=== PATIENT | female | born 1950 | race Caucasian/White ===

== ENCOUNTER 2024-09-16 05:51 | Inpatient (IN) | payer MEDICARE ==
[2024-09-16] MEDS ORDERED: Magnesium 2 GM/50 ML BAG (IN WATER) ONE (06:06)
[2024-09-16] MEDS ORDERED: Dexamethasone 10 MG/ML VIAL ONE (06:07)
[2024-09-16 06:19] LABS: #Basophils 0.11 10x3/uL (0.0-0.2); %Basophils 1.1 % (0.0-1.0); %Eosinophils 5.6 % (0.0-10.0); %Lymphocytes 9.5 % (21.0-51.0); %Neutrophils 72.5 % (42.0-75.0); Hematocrit 42.5 % (36.0-47.0); Hemoglobin 14.5 g/dL (12.0-16.0); Mean Corpuscular HGB CONC 34.1 g/dL (32.0-36.0); Mean Corpuscular Hemoglobin 32.6 pg (27.0-31.0); Mean Corpuscular Volume 95.5 fL (78.0-98.0); Mean Platelet Volume 10.4 fL (7.4-10.4); Platelet Count 427 10x3/uL (130-400); RBC Distribution Width 19.5 % (11.5-14.5); Red Blood Cell (RBC) Count 4.45 mill/uL (4.20-5.40)
[2024-09-16 06:35] LABS: ALT (SGPT) 9 U/L (8-55); AST (SGOT) 20 U/L (5-34); Albumin 4.3 g/dL (3.4-4.8); Alkaline Phosphatase 55 U/L (40-110); Anion Gap 20 mmol/L (10-20); BUN (Urea Nitrogen) 23 mg/dL (9.8-20.1); Bilirubin, Total 4.4 mg/dL (0.2-1.2); Calc. Creatinine Clearance 0 mL/min (70-130); Calcium 9.9 mg/dL (7.8-10.44); Carbon Dioxide 17 mmol/L (23-31); Chloride 104 mmol/L (98-107); Estimated GFR 46; Globulin 3.2 g/dL (2.4-3.5); Glucose 108 mg/dL (83-110); Potassium 4.6 mmol/L (3.5-5.1); Protein, Total 7.5 g/dL (5.8-8.1); Sodium 136 mmol/L (136-145)
[2024-09-16 06:38] LABS: Troponin I 0.186 ng/mL (< 0.028)
[2024-09-16] MEDS ORDERED: Ipratropium/Albuterol 3 ML NEB ONE ×2 (07:42→07:49)
[2024-09-16] MEDS ORDERED: Albuterol 2.5 MG (3 mL) NEB ONE (07:49)
[2024-09-16] MEDS ORDERED: Furosemide 20 MG (2 mL) VIAL ONE (08:06)
[2024-09-16 09:10] LABS: Lactic Acid 1.66 mmol/L (0.5-2.2)
[2024-09-16 10:37] LABS: Troponin I 0.169 ng/mL (< 0.028)
[2024-09-16 10:52] VITALS: BMI 46.0
[2024-09-16] MEDS: Apixaban 5 MG TAB PO SCH (11:04)
[2024-09-16] MEDS: Famotidine 20 MG TAB PO SCH (11:04)
[2024-09-16] MEDS: Furosemide 20 MG (2 mL) VIAL SLOW IVP SCH (11:04)
[2024-09-16] MEDS: Sacubitril 24MG/Valsartan 26 MG TAB PO SCH (11:04)
[2024-09-16] MEDS: Carvedilol 3.125 MG TAB PO SCH (11:04)
[2024-09-16] MEDS: Midodrine HCl 5 MG TAB PO SCH (11:04)
[2024-09-16 12:40] LABS: Troponin I 0.174 ng/mL (< 0.028)
[2024-09-16] MEDS ORDERED: Iopamidol-370 76% 500 ML MDV (1 ML CHARGE) ONE (13:35)
[2024-09-16] MEDS: Furosemide 40 MG (4 mL) VIAL SLOW IVP SCH (14:16)
[2024-09-17 05:03] LABS: #Basophils 0.04 10x3/uL (0.0-0.2); #Eosinophils Less than 0.03 10x3/uL (0.0-0.7); %Basophils 0.3 % (0.0-1.0); %Lymphocytes 4.7 % (21.0-51.0); %Monocytes 9.6 % (0.0-10.0); %Neutrophils 84.9 % (42.0-75.0); Hematocrit 37.8 % (36.0-47.0); Mean Corpuscular HGB CONC 34.4 g/dL (32.0-36.0); Mean Corpuscular Hemoglobin 31.6 pg (27.0-31.0); Mean Corpuscular Volume 91.7 fL (78.0-98.0); Mean Platelet Volume 10.6 fL (7.4-10.4); Platelet Count 403 10x3/uL (130-400); RBC Distribution Width 19.3 % (11.5-14.5); Red Blood Cell (RBC) Count 4.12 mill/uL (4.20-5.40)
[2024-09-17 05:26] LABS: Anion Gap 18 mmol/L (10-20); BUN (Urea Nitrogen) 33 mg/dL (9.8-20.1); Calc. Creatinine Clearance 60 mL/min (70-130); Calcium 9.3 mg/dL (7.8-10.44); Carbon Dioxide 20 mmol/L (23-31); Chloride 102 mmol/L (98-107); Estimated GFR 35; Glucose 135 mg/dL (83-110); Magnesium 2.2 mg/dL (1.6-2.6); Potassium 4.3 mmol/L (3.5-5.1); Sodium 136 mmol/L (136-145)
[2024-09-17] MEDS: Spironolactone 25 MG TAB PO SCH (08:48)
[2024-09-17] MEDS: Furosemide 100 MG (10 mL) VIAL SLOW IVP SCH ×2 (12:33→16:30)
[2024-09-17] MEDS ORDERED: Ipratropium/Albuterol 3 ML NEB NEB PRN (16:52)
[2024-09-17] MEDS: Pantoprazole DR 40 MG TAB PO SCH (18:27)
[2024-09-18] MEDS ORDERED: Sterile Water 10 ML VIAL FS PRN (04:30)
[2024-09-18] MEDS ORDERED: Furosemide 100 MG (10 mL) VIAL SLOW IVP SCH (06:00)
[2024-09-18 06:16] LABS: #Basophils 0.12 10x3/uL (0.0-0.2); %Basophils 0.8 % (0.0-1.0); %Eosinophils 2.7 % (0.0-10.0); %Lymphocytes 7.4 % (21.0-51.0); %Monocytes 13.5 % (0.0-10.0); %Neutrophils 75.1 % (42.0-75.0); Hematocrit 41.1 % (36.0-47.0); Hemoglobin 14.1 g/dL (12.0-16.0); Mean Corpuscular HGB CONC 34.3 g/dL (32.0-36.0); Mean Corpuscular Hemoglobin 31.7 pg (27.0-31.0); Mean Corpuscular Volume 92.4 fL (78.0-98.0); Platelet Count 412 10x3/uL (130-400); RBC Distribution Width 19.1 % (11.5-14.5); Red Blood Cell (RBC) Count 4.45 mill/uL (4.20-5.40)
[2024-09-18] MEDS: Ziprasidone 20 MG VIAL IM SCH (06:21)
[2024-09-18 06:35] LABS: Bacteria/HPF 2+ HPF (None Seen); WBC/HPF 21-50 HPF (0-3)
[2024-09-18 06:35] LABS: Anion Gap 19 mmol/L (10-20); BUN (Urea Nitrogen) 42 mg/dL (9.8-20.1); Calc. Creatinine Clearance 47 mL/min (70-130); Calcium 9.9 mg/dL (7.8-10.44); Carbon Dioxide 17 mmol/L (23-31); Chloride 104 mmol/L (98-107); Estimated GFR 26; Glucose 102 mg/dL (83-110); Potassium 4.6 mmol/L (3.5-5.1); Sodium 135 mmol/L (136-145)
[2024-09-18 06:44] LABS: Bilirubin Negative (Negative); Blood, Urine 2+ (Negative); Clarity Turbid (Clear); Glucose, Urine (Dipstick) Normal (Negative); Ketone, Urine Negative (Negative); Leukocyte 500 Leu/uL (Negative); Nitrite Negative (Negative); Protein, Urine (Dipstick) 20 mg/dL (Neg-Trace); Specific Gravity, Urine 1.025 (1.002-1.036)
[2024-09-18] MEDS ORDERED: Dapagliflozin Propanediol 10 MG TAB PO SCH (09:00)
[2024-09-18] MEDS: Pantoprazole DR 40 MG TAB PO SCH (09:22)
[2024-09-18 10:08] LABS: Actual Bicarbonate (HCO3a) 20.4 mEq/L (22-28); Base Excess (BEa) -3.1 mEq/L (-2.0 to +3.0); CO2 Tension 32.4 mmHg (35.0-45.0); Calcium, Ionized (arterial) 1.16 mmol/L (1.12-1.30); Carboxyhemoglobin (COHb) 1.2 gm% (0.0-3.0); Hematocrit-ABG 42 % (36.0-47.0); Hemoglobin (Hb) 14.2 g/dL (12.0-16.0); O2 Tension (PaO2), arterial 77.7 mmHg (> 70.0); Potassium - ABG Lab 4.45 mmol/L (3.70-5.30); pH, Arterial 7.418 (7.35-7.45)
[2024-09-18 10:09] LABS: Puncture Site Right Brachial art
[2024-09-18] MEDS: cefTRIAXone\\ROCEPHIN 2 GM in Sodium Chloride 0.9% 100 ML IVPB SCH (10:40)
[2024-09-18] MEDS ORDERED: DOPamine 400 MG/D5W 250 ML 250 ML IVPB SCH (14:00)
[2024-09-18] MEDS: DOPamine 400 MG/D5W 250 ML 250 ML ONE (14:01)
[2024-09-18] MEDS ORDERED: Morphine 2 MG/ML VIAL SLOW IVP PRN (14:09)
[2024-09-18] MEDS ORDERED: NOREPINEPHRINE 8 MG/250 ML-D5W 250 ML IVPB PRN (14:10)
[2024-09-18] MEDS ORDERED: Promethazine HCl 12.5 MG in Sodium Chloride 0.9% 50 ML IVPB PRN (14:11)
[2024-09-18] MEDS: Morphine 2 MG/ML VIAL SLOW IVP SCH (14:20)
[2024-09-18] MEDS: Ondansetron PF 4 MG/2 ML Vial IVP SCH (14:21)
[2024-09-18] MEDS: NOREPINEPHRINE 8 MG/250 ML-D5W 250 ML IVPB SCH (16:13)
[2024-09-18] MEDS: DOBUTamine 500 mg/250 ml 250 ML IVPB SCH (16:21)
[2024-09-19 08:41] LABS: #Basophils 0.08 10x3/uL (0.0-0.2); %Basophils 0.7 % (0.0-1.0); %Eosinophils 5.3 % (0.0-10.0); %Lymphocytes 5.8 % (21.0-51.0); %Monocytes 12.8 % (0.0-10.0); %Neutrophils 74.9 % (42.0-75.0); Hematocrit 39.6 % (36.0-47.0); Hemoglobin 13.5 g/dL (12.0-16.0); Mean Corpuscular HGB CONC 34.1 g/dL (32.0-36.0); Mean Corpuscular Hemoglobin 31.9 pg (27.0-31.0); Mean Corpuscular Volume 93.6 fL (78.0-98.0); Mean Platelet Volume 10.4 fL (7.4-10.4); Platelet Count 395 10x3/uL (130-400); RBC Distribution Width 19.1 % (11.5-14.5); Red Blood Cell (RBC) Count 4.23 mill/uL (4.20-5.40)
[2024-09-19 09:05] LABS: Anion Gap 15 mmol/L (10-20); BUN (Urea Nitrogen) 45 mg/dL (9.8-20.1); Calc. Creatinine Clearance 56 mL/min (70-130); Calcium 9.5 mg/dL (7.8-10.44); Carbon Dioxide 20 mmol/L (23-31); Chloride 103 mmol/L (98-107); Estimated GFR 33; Glucose 99 mg/dL (83-110); Sodium 134 mmol/L (136-145)
[2024-09-19 09:10] LABS: Anion Gap 16 mmol/L (10-20); BUN (Urea Nitrogen) 45 mg/dL (9.8-20.1); Calc. Creatinine Clearance 56 mL/min (70-130); Calcium 9.6 mg/dL (7.8-10.44); Carbon Dioxide 20 mmol/L (23-31); Chloride 103 mmol/L (98-107); Estimated GFR 33; Glucose 99 mg/dL (83-110); Potassium 4.1 mmol/L (3.5-5.1); Sodium 135 mmol/L (136-145)
[2024-09-19 11:39] LABS: ALT (SGPT) 11 U/L (8-55); AST (SGOT) 28 U/L (5-34); Albumin 3.7 g/dL (3.4-4.8); Alkaline Phosphatase 46 U/L (40-110); Bilirubin, Total 5.1 mg/dL (0.2-1.2); Protein, Total 6.7 g/dL (5.8-8.1)
[2024-09-19] MEDS: Guaifenesin DM 100-10/5 ML UDCUP PO PRN (20:16)
[2024-09-19] MEDS: Ipratropium/Albuterol 3 ML NEB NEB PRN (21:31)
[2024-09-19] MEDS: Albumin 5% 12.5 GM (250 mL) BOT IVPB SCH (21:35)
[2024-09-20 04:45] LABS: #Basophils 0.09 10x3/uL (0.0-0.2); %Basophils 0.9 % (0.0-1.0); %Eosinophils 6.8 % (0.0-10.0); %Lymphocytes 8.1 % (21.0-51.0); %Monocytes 15.6 % (0.0-10.0); %Neutrophils 68.1 % (42.0-75.0); Hematocrit 38.9 % (36.0-47.0); Hemoglobin 13.5 g/dL (12.0-16.0); Mean Corpuscular HGB CONC 34.7 g/dL (32.0-36.0); Mean Corpuscular Hemoglobin 32.4 pg (27.0-31.0); Mean Corpuscular Volume 93.3 fL (78.0-98.0); Mean Platelet Volume 10.4 fL (7.4-10.4); Platelet Count 453 10x3/uL (130-400); RBC Distribution Width 19.1 % (11.5-14.5); Red Blood Cell (RBC) Count 4.17 mill/uL (4.20-5.40)
[2024-09-20 05:31] LABS: Anion Gap 16 mmol/L (10-20); BUN (Urea Nitrogen) 45 mg/dL (9.8-20.1); Calc. Creatinine Clearance 58 mL/min (70-130); Calcium 8.9 mg/dL (7.8-10.44); Carbon Dioxide 20 mmol/L (23-31); Chloride 101 mmol/L (98-107); Estimated GFR 34; Glucose 139 mg/dL (83-110); Potassium 4.2 mmol/L (3.5-5.1); Sodium 133 mmol/L (136-145)
[2024-09-20] MEDS: NOREPINEPHRINE 8 MG/250 ML-D5W 250 ML IVPB SCH (09:08)
[2024-09-20] MEDS: Benzonatate 100 MG CAP PO SCH ×2 (09:29→17:00)
[2024-09-20] MEDS: Ipratropium/Albuterol 3 ML NEB NEB SCH ×2 (10:12→12:37)
[2024-09-21 06:15] LABS: Anion Gap 16 mmol/L (10-20); BUN (Urea Nitrogen) 47 mg/dL (9.8-20.1); Calc. Creatinine Clearance 66 mL/min (70-130); Calcium 9.4 mg/dL (7.8-10.44); Carbon Dioxide 19 mmol/L (23-31); Chloride 103 mmol/L (98-107); Estimated GFR 39; Glucose 122 mg/dL (83-110); Potassium 4.3 mmol/L (3.5-5.1); Sodium 134 mmol/L (136-145)
[2024-09-21 06:18] LABS: %Eosinophils 7.1 % (0.0-10.0); %Lymphocytes 11.4 % (21.0-51.0); %Monocytes 17.8 % (0.0-10.0); %Neutrophils 62.1 % (42.0-75.0); Hematocrit 42.4 % (36.0-47.0); Hemoglobin 14.5 g/dL (12.0-16.0); Mean Corpuscular HGB CONC 34.2 g/dL (32.0-36.0); Mean Corpuscular Hemoglobin 31.8 pg (27.0-31.0); Mean Platelet Volume 10.8 fL (7.4-10.4); Platelet Count 490 10x3/uL (130-400); RBC Distribution Width 19.4 % (11.5-14.5); Red Blood Cell (RBC) Count 4.56 mill/uL (4.20-5.40)
[2024-09-21] MEDS: Ipratropium/Albuterol 3 ML NEB NEB SCH (10:33)
[2024-09-21] MEDS: methylPREDNISolone Sod Succ/PF 125 MG/2 ML VIAL IVP SCH (12:48)
[2024-09-21] MEDS: Ondansetron PF 4 MG/2 ML Vial IVP PRN (21:21)
[2024-09-22 03:38] LABS: #Basophils Less than 0.03 10x3/uL (0.0-0.2); #Eosinophils Less than 0.03 10x3/uL (0.0-0.7); %Basophils 0.2 % (0.0-1.0); %Eosinophils 0.1 % (0.0-10.0); %Lymphocytes 6.3 % (21.0-51.0); %Monocytes 2.8 % (0.0-10.0); %Neutrophils 89.7 % (42.0-75.0); Hematocrit 43.7 % (36.0-47.0); Mean Corpuscular HGB CONC 34.3 g/dL (32.0-36.0); Mean Corpuscular Hemoglobin 32.3 pg (27.0-31.0); Mean Platelet Volume 10.4 fL (7.4-10.4); Platelet Count 453 10x3/uL (130-400); RBC Distribution Width 19.1 % (11.5-14.5); Red Blood Cell (RBC) Count 4.65 mill/uL (4.20-5.40)
[2024-09-22 03:59] LABS: Anion Gap 19 mmol/L (10-20); BUN (Urea Nitrogen) 43 mg/dL (9.8-20.1); Calc. Creatinine Clearance 70 mL/min (70-130); Calcium 9.2 mg/dL (7.8-10.44); Carbon Dioxide 18 mmol/L (23-31); Chloride 101 mmol/L (98-107); Estimated GFR 43; Glucose 181 mg/dL (83-110); Potassium 4.9 mmol/L (3.5-5.1); Sodium 133 mmol/L (136-145)
[2024-09-23 04:44] LABS: #Basophils 0.03 10x3/uL (0.0-0.2); #Eosinophils Less than 0.03 10x3/uL (0.0-0.7); %Basophils 0.2 % (0.0-1.0); %Eosinophils 0.1 % (0.0-10.0); %Lymphocytes 3.3 % (21.0-51.0); %Monocytes 6.4 % (0.0-10.0); %Neutrophils 89.1 % (42.0-75.0); Hematocrit 41.8 % (36.0-47.0); Hemoglobin 14.6 g/dL (12.0-16.0); Mean Corpuscular HGB CONC 34.9 g/dL (32.0-36.0); Mean Corpuscular Volume 91.7 fL (78.0-98.0); Mean Platelet Volume 10.5 fL (7.4-10.4); Platelet Count 493 10x3/uL (130-400); RBC Distribution Width 19.4 % (11.5-14.5); Red Blood Cell (RBC) Count 4.56 mill/uL (4.20-5.40)
[2024-09-23 05:08] LABS: Anion Gap 16 mmol/L (10-20); BUN (Urea Nitrogen) 49 mg/dL (9.8-20.1); Calc. Creatinine Clearance 65 mL/min (70-130); Calcium 9.6 mg/dL (7.8-10.44); Carbon Dioxide 21 mmol/L (23-31); Chloride 101 mmol/L (98-107); Estimated GFR 38; Glucose 181 mg/dL (83-110); Potassium 4.9 mmol/L (3.5-5.1); Sodium 133 mmol/L (136-145)
[2024-09-23] MEDS: methylPREDNISolone Sod Succ 40 MG VIAL IVP SCH (11:38)
[2024-09-24 04:28] LABS: #Basophils Less than 0.03 10x3/uL (0.0-0.2); #Eosinophils Less than 0.03 10x3/uL (0.0-0.7); %Basophils 0.1 % (0.0-1.0); %Monocytes 5.2 % (0.0-10.0); %Neutrophils 90.8 % (42.0-75.0); Hematocrit 40.7 % (36.0-47.0); Hemoglobin 14.1 g/dL (12.0-16.0); Mean Corpuscular HGB CONC 34.6 g/dL (32.0-36.0); Mean Corpuscular Hemoglobin 32.4 pg (27.0-31.0); Mean Corpuscular Volume 93.6 fL (78.0-98.0); Mean Platelet Volume 10.2 fL (7.4-10.4); Platelet Count 446 10x3/uL (130-400); RBC Distribution Width 19.3 % (11.5-14.5); Red Blood Cell (RBC) Count 4.35 mill/uL (4.20-5.40)
[2024-09-24 05:04] LABS: Anion Gap 16 mmol/L (10-20); BUN (Urea Nitrogen) 57 mg/dL (9.8-20.1); Calc. Creatinine Clearance 58 mL/min (70-130); Calcium 9.3 mg/dL (7.8-10.44); Carbon Dioxide 21 mmol/L (23-31); Chloride 100 mmol/L (98-107); Estimated GFR 34; Glucose 160 mg/dL (83-110); Potassium 5.2 mmol/L (3.5-5.1); Sodium 132 mmol/L (136-145)
[2024-09-24 13:26] VITALS: BMI 44.6
[2024-09-24] MEDS: Acetaminophen 325 MG TAB PO PRN (18:33)
[2024-09-24] MEDS: methylPREDNISolone Sod Succ 40 MG VIAL IVP SCH (21:27)
[2024-09-25 08:46] LABS: #Basophils 0.03 10x3/uL (0.0-0.2); #Eosinophils Less than 0.03 10x3/uL (0.0-0.7); %Basophils 0.2 % (0.0-1.0); %Lymphocytes 3.3 % (21.0-51.0); %Monocytes 8.6 % (0.0-10.0); %Neutrophils 86.7 % (42.0-75.0); Hematocrit 44.1 % (36.0-47.0); Hemoglobin 15.2 g/dL (12.0-16.0); Mean Corpuscular HGB CONC 34.5 g/dL (32.0-36.0); Mean Corpuscular Hemoglobin 31.9 pg (27.0-31.0); Mean Corpuscular Volume 92.6 fL (78.0-98.0); Mean Platelet Volume 10.4 fL (7.4-10.4); Platelet Count 466 10x3/uL (130-400); RBC Distribution Width 19.4 % (11.5-14.5); Red Blood Cell (RBC) Count 4.76 mill/uL (4.20-5.40)
[2024-09-25 09:03] LABS: Anion Gap 14 mmol/L (10-20); BUN (Urea Nitrogen) 60 mg/dL (9.8-20.1); Calc. Creatinine Clearance 67 mL/min (70-130); Calcium 9.4 mg/dL (7.8-10.44); Carbon Dioxide 20 mmol/L (23-31); Chloride 102 mmol/L (98-107); Estimated GFR 40; Glucose 154 mg/dL (83-110); Potassium 5.4 mmol/L (3.5-5.1); Sodium 131 mmol/L (136-145)
[2024-09-25] MEDS: Empagliflozin 10 MG TAB PO SCH (16:19)
[2024-09-26] MEDS: Empagliflozin 10 MG TAB PO SCH (08:55)
[2024-09-26 10:25] LABS: Anion Gap 16 mmol/L (10-20); BUN (Urea Nitrogen) 63 mg/dL (9.8-20.1); Calc. Creatinine Clearance 67 mL/min (70-130); Carbon Dioxide 24 mmol/L (23-31); Chloride 99 mmol/L (98-107); Estimated GFR 39; Potassium 5.7 mmol/L (3.5-5.1); Sodium 133 mmol/L (136-145)
[2024-09-26 10:26] LABS: Calcium 9.7 mg/dL (7.8-10.44); Glucose 170 mg/dL (83-110)
[2024-09-26] MEDS: Sodium Polystyrene Sulfonate 15 GM (60 mL) BOT PO SCH (11:39)
[2024-09-26 19:25] LABS: Potassium 4.9 mmol/L (3.5-5.1)
[2024-09-26] MEDS: Albumin 25% 25 GM (100 mL) BOT IVPB SCH (21:06)
[2024-09-26] MEDS: Midodrine HCl 5 MG TAB PO SCH ×2 (21:07)
[2024-09-27 04:54] LABS: #Basophils Less than 0.03 10x3/uL (0.0-0.2); #Eosinophils Less than 0.03 10x3/uL (0.0-0.7); %Basophils 0.1 % (0.0-1.0); %Eosinophils 0.1 % (0.0-10.0); %Lymphocytes 2.1 % (21.0-51.0); %Monocytes 8.3 % (0.0-10.0); %Neutrophils 88.5 % (42.0-75.0); Hematocrit 37.8 % (36.0-47.0); Hemoglobin 13.1 g/dL (12.0-16.0); Mean Corpuscular HGB CONC 34.7 g/dL (32.0-36.0); Mean Corpuscular Hemoglobin 31.9 pg (27.0-31.0); Platelet Count 428 10x3/uL (130-400); RBC Distribution Width 19.1 % (11.5-14.5); Red Blood Cell (RBC) Count 4.11 mill/uL (4.20-5.40)
[2024-09-27 05:09] LABS: Anion Gap 13 mmol/L (10-20); BUN (Urea Nitrogen) 60 mg/dL (9.8-20.1); Calc. Creatinine Clearance 82 mL/min (70-130); Calcium 9.3 mg/dL (7.8-10.44); Carbon Dioxide 22 mmol/L (23-31); Chloride 101 mmol/L (98-107); Estimated GFR 51; Glucose 147 mg/dL (83-110); Potassium 5.1 mmol/L (3.5-5.1); Sodium 131 mmol/L (136-145)
[2024-09-27] MEDS: Sodium Polystyrene Sulfonate 15 GM (60 mL) BOT PO SCH (09:44)
[2024-09-27 12:22] VITALS: BP 95/56; TEMP 97.4
== END 2024-09-27 14:23 | disposition hospice, home (50) | DRG 291 ==
LOC: ERS 05:51 → OBS 10:09 → OBSVTOIN 09-17 09:36 → IMCU/EMU 09-18 11:46 → CCU 09-18 13:47 → 2NO 09-24 17:19
PROVIDERS: ADMIT Internal Medicine; ATTEND Internal Medicine
DX: I13.0 Hypertensive heart and chronic kidney disease with heart failure and stage 1 through stage 4 chronic kidney disease, or unspecified chronic kidney disease (principal); G93.41 Metabolic encephalopathy; I50.43 Acute on chronic combined systolic (congestive) and diastolic (congestive) heart failure; R57.0 Cardiogenic shock; N17.9 Acute kidney failure, unspecified; I48.21 Permanent atrial fibrillation; I31.39 Other pericardial effusion (noninflammatory); Z68.42 Body mass index [BMI] 45.0-49.9, adult; N39.0 Urinary tract infection, site not specified; Z66 Do not resuscitate; Z51.5 Encounter for palliative care; N18.30 Chronic kidney disease, stage 3 unspecified; I25.10 Atherosclerotic heart disease of native coronary artery without angina pectoris; I42.9 Cardiomyopathy, unspecified; E66.01 Morbid (severe) obesity due to excess calories; I34.0 Nonrheumatic mitral (valve) insufficiency; J44.9 Chronic obstructive pulmonary disease, unspecified; I07.1 Rheumatic tricuspid insufficiency; G47.33 Obstructive sleep apnea (adult) (pediatric); E87.5 Hyperkalemia; Z95.810 Presence of automatic (implantable) cardiac defibrillator; Z88.8 Allergy status to other drugs, medicaments and biological substances; Z91.018 Allergy to other foods; Z79.899 Other long term (current) drug therapy; Z79.01 Long term (current) use of anticoagulants
CPT/HCPCS: 36415; 36600; 70450; 71045; 71275; 74176; 76705; 80048; 80053; 80076; 81001; 82805; 83605; 83735; 83880; 84145; 84484; 85025; 85379; 86141; 87040; 87086; 87428; 93005; 93306; 96365; 96375; 96376; 97139; G0378; J0696; J1100; J1250; J1265; J1940; J2272; J2405; J2919; J3475; J7611; J7620; P9045; P9047; Q9967